=== PATIENT | male | born 1965 | race Caucasian/White ===

== ENCOUNTER 2016-09-15 16:47 | Emergency (ER) | payer BC ==
[~2016-09-15] VITALS: Ht 185.4 cm; Wt 80.9 kg
[~2016-09-15 16:47] MED LIST: HYOSCYAMINE0.125 M1 SL; HYOSCYAMINE0.125 M2 PO; ISOSORBIDE DINI10 MG PO; LEXAPRO20 MG PO; LIDOCAINE20 MG/1 M5 PO; LISINOPRIL10 MG PO; NOHOMEMEDS; PERCOCET 5/31 TABLET PO; PREVACID15 MG PO; VALIUM5 MG PO; ZANTAC15 MG/ML PO
[2016-09-15 16:51] VITALS: BP 155/92
== END 2016-09-15 20:26 | disposition left against medical advice (07) ==
LOC: EME 16:47
DX: R09.89 Other specified symptoms and signs involving the circulatory and respiratory systems (principal); Z53.21 Procedure and treatment not carried out due to patient leaving prior to being seen by health care provider

== ENCOUNTER 2018-02-11 19:45 | Emergency (ER) | payer BC ==
[~2018-02-11] VITALS: Ht 182.9 cm; Wt 76.8 kg
[2018-02-11 21:50] LABS: HEMATOCRIT 49.1 % (38.0-50.0); HEMOGLOBIN 17.2 G/DL (12.5-16.6); MCH 30.7 PG (29.0-34.0); MCV 87.5 FL (86-99); PLATELET COUNT 280 K/uL (156-360); RBC DIS.WIDTH-CV 13.3 % (11.8-14.6); RBC DIS.WIDTH-SD 43.2 % (39-53); RED BLOOD COUNT 5.61 M/uL (4.00-5.50); WHITE BLOOD COUNT 13.3 K/uL (4.1-10.2)
[2018-02-11 22:04] LABS: CHLORIDE 104 mEq/L (99-109); POTASSIUM 4.1 mEq/L (3.7-5.4); SODIUM 137 mEq/L (136-147)
[2018-02-11 22:06] LABS: GLUCOSE 89 mg/dL (70-99)
[2018-02-11 22:10] LABS: GFR ESTIMATE (CALCULATED) > 59 mL/min/ (58.99-99999)
[2018-02-11 22:11] LABS: UREA NITROGEN (BUN) 15 mg/dL (9-23)
[2018-02-11 22:57] VITALS: BP 131/80
== END 2018-02-11 22:59 | disposition home or self-care (01) ==
LOC: EME 19:45
PROVIDERS: Nurse Practitioner Family
DX: T18.128A Food in esophagus causing other injury, initial encounter (principal); X58.XXXA Exposure to other specified factors, initial encounter; I49.8 Other specified cardiac arrhythmias; F17.200 Nicotine dependence, unspecified, uncomplicated
CPT/HCPCS: 70360; 71046; 80048; 85027; 93005; 99281; 99285; J7030

== ENCOUNTER 2018-02-17 14:04 | Emergency (ER) | payer BC ==
[~2018-02-17] VITALS: Ht 182.9 cm; Wt 76.1 kg
[2018-02-17 16:08] LABS: HEMATOCRIT 46.8 % (38.0-50.0); HEMOGLOBIN 16.4 G/DL (12.5-16.6); MCH 30.5 PG (29.0-34.0); PLATELET COUNT 267 K/uL (156-360); RBC DIS.WIDTH-CV 13.6 % (11.8-14.6); RBC DIS.WIDTH-SD 43.3 % (39-53); RED BLOOD COUNT 5.38 M/uL (4.00-5.50); WHITE BLOOD COUNT 13.5 K/uL (4.1-10.2)
[2018-02-17 16:20] LABS: ALBUMIN 4.3 g/dL (3.2-4.8); CHLORIDE 103 mEq/L (99-109); POTASSIUM 4.1 mEq/L (3.7-5.4); SODIUM 137 mEq/L (136-147)
[2018-02-17 16:22] LABS: GLUCOSE 102 mg/dL (70-99)
[2018-02-17 16:24] LABS: TOTAL BILIRUBIN 0.7 mg/dL (0.0-1.0)
[2018-02-17 16:25] LABS: SERUM ETHYL ALCOHOL < 10 mg/dL
[2018-02-17 16:26] LABS: ALKALINE PHOSPHATASE 73 IU/L (3-129); GFR ESTIMATE (CALCULATED) > 59 mL/min/ (58.99-99999)
[2018-02-17 16:27] LABS: UREA NITROGEN (BUN) 9 mg/dL (9-23)
[2018-02-17 16:28] LABS: AST (GOT) 14 IU/L (2-34)
[2018-02-17 16:29] LABS: ALT (GPT) 10 IU/L (3-49)
[2018-02-17 17:00] LABS: AMPHETAMINE NEGATIVE (500 ng/mL); BARBITURATES NEGATIVE (200 ng/mL); BENZODIAZEPINES PRESUMPTIVE POSITIVE (150 ng/mL); BUPRENORPHINE NEGATIVE (10 ng/mL); COCAINE NEGATIVE (150 ng/mL); METHADONE NEGATIVE (200 ng/mL); METHAMPHETAMINE NEGATIVE (500 ng/mL); OPIATES (MORPHINE) NEGATIVE (100 ng/mL); OXYCODONE NEGATIVE (100 ng/mL); PHENCYCLIDINE NEGATIVE (25 ng/mL); PROPOXYPHENE NEGATIVE (300 ng/mL); THC CANNABINOIDS NEGATIVE (50 ng/mL); TRICYCLIC ANTIDEPRESSANTS NEGATIVE (300 ng/mL)
[2018-02-17 17:27] LABS: BENZODIAZEPINES, URINE SCREEN POSITIVE (200 ng/mL)
[2018-02-17 18:25] VITALS: BP 129/91
== END 2018-02-17 18:27 | disposition home or self-care (01) ==
LOC: EME 14:04
PROVIDERS: Emergency Medicine
DX: F32.9 Major depressive disorder, single episode, unspecified (principal); T18.120A Food in esophagus causing compression of trachea, initial encounter; K22.2 Esophageal obstruction; F60.9 Personality disorder, unspecified; X58.XXXA Exposure to other specified factors, initial encounter; F17.200 Nicotine dependence, unspecified, uncomplicated
CPT/HCPCS: 80053; 84999; 85027; 90839; 99281; 99284; G0480; J2405; J7030

== ENCOUNTER 2018-03-29 14:41 | Emergency (ER) | payer BC ==
[~2018-03-29] VITALS: Ht 182.9 cm; Wt 73.4 kg
[2018-03-29 16:18] LABS: BASOPHIL (%) 0.8 % (0-1); BASOPHIL COUNT 0.1 K/uL (0-0.1); EOSINOPHIL (%) 1.1 % (0-5); EOSINOPHIL COUNT 0.1 K/uL (0-0.3); HEMATOCRIT 50.1 % (38.0-50.0); HEMOGLOBIN 16.8 G/DL (12.5-16.6); IMMATURE GRANULOCYTE (%) 0.8 % (0.0-0.7); LYMPHOCYTE (%) 19.3 % (15-42); LYMPHOCYTE COUNT 2.5 K/uL (1.0-2.8); MCH 30.1 PG (29.0-34.0); MCHC 33.5 G/DL (30.0-36.0); MCV 89.8 FL (86-99); MONOCYTE (%) 8.5 % (3-12); MONOCYTE COUNT 1.1 K/uL (0-0.8); NEUTROPHIL (%) 69.5 % (45-76); PLATELET COUNT 277 K/uL (156-360); RBC DIS.WIDTH-CV 14.1 % (11.8-14.6); RBC DIS.WIDTH-SD 46.6 % (39-53); RED BLOOD COUNT 5.58 M/uL (4.00-5.50)
[2018-03-29 16:26] LABS: PTT 23.4 SEC (25-37)
[2018-03-29 16:31] LABS: CHLORIDE 101 mEq/L (99-109); POTASSIUM 4.3 mEq/L (3.7-5.4); SODIUM 139 mEq/L (136-147)
[2018-03-29 16:32] LABS: GLUCOSE 100 mg/dL (70-99)
[2018-03-29 16:36] LABS: CREATININE 1.1 mg/dL (0.6-1.3); GFR ESTIMATE (CALCULATED) > 59 mL/min/ (58.99-99999)
[2018-03-29 16:37] LABS: UREA NITROGEN (BUN) 10 mg/dL (9-23)
[2018-03-29 18:17] VITALS: BP 133/84
[2018-03-30] MEDS ORDERED: NITROGLYCERIN0.4 MG SL (15:37)
== END 2018-03-29 17:54 | disposition home or self-care (01) ==
LOC: EME 14:41
PROVIDERS: Physician Assistant
DX: K22.4 Dyskinesia of esophagus (principal); I10 Essential (primary) hypertension; K21.9 Gastro-esophageal reflux disease without esophagitis; E78.5 Hyperlipidemia, unspecified; F17.200 Nicotine dependence, unspecified, uncomplicated; Z87.898 Personal history of other specified conditions
CPT/HCPCS: 70360; 80048; 82948; 85025; 85610; 85730; 99281; 99284; J7030